=== PATIENT | female | born 1990 | race Caucasian/White ===

== ENCOUNTER → 2020-10-24 | Outpatient (CLI) | payer BC, OTHER | LOC: OPSV 10:38 | DX: A53.9 Syphilis, unspecified (principal) | CPT/HCPCS: 96372; J0561 ==

== ENCOUNTER → 2020-11-01 | Outpatient (CLI) | payer BC, OTHER ==
[~2020-11-01] VITALS: Ht 167.6 cm; Wt 70.3 kg
== END ==
LOC: OPSV 13:00
DX: A53.9 Syphilis, unspecified (principal)
CPT/HCPCS: 96372; J0561

== ENCOUNTER → 2020-11-08 | Outpatient (CLI) | payer BC, OTHER ==
[~2020-11-08] VITALS: Ht 167.6 cm; Wt 70.3 kg
== END ==
LOC: OPSV 13:00
DX: A53.9 Syphilis, unspecified (principal)
CPT/HCPCS: 96372; J0561

== ENCOUNTER 2021-04-11 11:17 | Outpatient (CLI) | payer BC, OTHER | END 2021-04-11 17:36 | disposition home or self-care (01) | LOC: GENOP 11:17 | PROVIDERS: Obstetrics & Gynecology | DX: O47.03 False labor before 37 completed weeks of gestation, third trimester (principal); O36.8130 Decreased fetal movements, third trimester, not applicable or unspecified; O99.323 Drug use complicating pregnancy, third trimester; F11.20 Opioid dependence, uncomplicated; O99.343 Other mental disorders complicating pregnancy, third trimester; F41.9 Anxiety disorder, unspecified; F32.A Depression, unspecified; O99.413 Diseases of the circulatory system complicating pregnancy, third trimester; I48.91 Unspecified atrial fibrillation; O99.613 Diseases of the digestive system complicating pregnancy, third trimester; K29.70 Gastritis, unspecified, without bleeding; O99.891 Other specified diseases and conditions complicating pregnancy; M79.7 Fibromyalgia; Z3A.33 33 weeks gestation of pregnancy | CPT/HCPCS: 80307; 81001; G0463; J3105 ==

== ENCOUNTER 2021-05-05 03:56 | Inpatient (IN) | payer BC, OTHER ==
[~2021-05-05] VITALS: Ht 167.6 cm; Wt 83.9 kg
[2021-05-05 09:41] LABS: HEMOGLOBIN 12.3 gm/dl (12.3-15.3); RED BLOOD COUNT 4.63 M/UL (4.00-5.10); WHITE BLOOD COUNT 17.7 K/UL (4.5-11.0)
[2021-05-05] MEDS ORDERED: FEROSUL325 MG PO (18:13)
[2021-05-05] MEDS ORDERED: IBUPROFEN600 MG PO (18:13)
[2021-05-05] MEDS ORDERED: DOCUSATE SODIU250 MG PO (18:13)
[2021-05-06 07:53] LABS: HEMOGLOBIN 8.1 gm/dl (12.3-15.3)
== END 2021-05-07 15:21 | disposition home or self-care (01) | DRG 807 ==
LOC: GENOP 03:56 → OB 09:16
PROVIDERS: Obstetrics & Gynecology; ADMIT Obstetrics & Gynecology
PROC: 10E0XZZ Delivery of Products of Conception, External Approach (ICD-10-PCS; principal; 2021-05-05)
PROC: 0KQM0ZZ Repair Perineum Muscle, Open Approach (ICD-10-PCS; 2021-05-05)
PROC: 4A1HXCZ Monitoring of Products of Conception, Cardiac Rate, External Approach (ICD-10-PCS; 2021-05-05)
PROC: 10907ZC Drainage of Amniotic Fluid, Therapeutic from Products of Conception, Via Natural or Artificial Opening (ICD-10-PCS; 2021-05-05)
DX: O60.14X0 Preterm labor third trimester with preterm delivery third trimester, not applicable or unspecified (principal); Z37.0 Single live birth; Z3A.36 36 weeks gestation of pregnancy; Z20.822 Contact with and (suspected) exposure to COVID-19; O70.1 Second degree perineal laceration during delivery
CPT/HCPCS: 36415; 51702; 80307; 81001; 85014; 85018; 85025; J2300; J2405; J2590; J7120; U0002

== ENCOUNTER → 2022-03-15 | Outpatient (CLI) | payer OTHER ==
[~2022-03-15] MED LIST: DOCUSATE SODIU250 MG PO; FEROSUL325 MG PO; IBUPROFEN600 MG PO
== END ==
LOC: KOH-I 09:47
DX: M25.561 Pain in right knee (principal); M25.562 Pain in left knee
CPT/HCPCS: 73562